=== PATIENT | female | born 1935 | race Caucasian/White ===

== ENCOUNTER 2017-12-08 13:38 | Inpatient (IN) | payer OTHER ==
--- NOTE | 2017-12-08 13:55 | EDPHY ---
H & P Stated Complaint: dizziness Time Seen by Provider: 12/08/17 13:54 - Personal History Tetanus Vaccine Date: last 10 years - Medical/Surgical History Hx Asthma: No Hx Chronic Respiratory Disease: No Hx Diabetes: No Hx Cardiac Disease: No Hx Renal Disease: No Hx Cirrhosis: No Hx Alcoholism: No Hx HIV/AIDS: No Hx Splenectomy or Spleen Trauma: No Other PMH: healthy only sees pcp yearly. asthma well controlled - Social History Smoking Status: Former smoker Constitutional: Initial Vital Signs Temperature (C) 36.4 C 12/08/17 13:40 Heart Rate 63 12/08/17 13:40 Respiratory Rate 18 12/08/17 13:40 Blood Pressure 148/72 H 12/08/17 13:40 O2 Sat (%) 93 12/08/17 13:40 O2 Delivery Mode Room Air Allergies/Adverse Reactions: sulfamethoxazole [From Bactrim] Allergy (Unknown, Verified 02/24/11 18:19) trimethoprim [From Bactrim] Allergy (Unknown, Verified 02/24/11 18:19) Home Medications: Medication Instructions Recorded Albuterol 02/24/11 MULTIVITAMINS W-IRON 02/24/11 Proair 02/24/11 Medical Decision Making ED Course/Re-evaluation: CHIEF COMPLAINT: Lightheadedness, syncope & fall with amnesia HISTORY OF PRESENT ILLNESS: The patient is an 82 y/o female with a history of asthma arriving via EMS with her daughter complaining of lightheadedness onset this morning. She went for a walk this morning and felt normal. While standing and talking with someone she felt dizzy and then doesn't remember what happened. Per daughter, bystanders reported she fell and loss consciousness. The bystanders helped her home and her family member called 911. Her daughter says, "she doesn't remember to eat and doesn't drink enough water." Daughter has also requested to speak with a social service agency director. REVIEW OF SYSTEMS: A comprehensive 10 system review of systems is otherwise negative aside from elements mentioned in the history of present illness and medical decision making. PHYSICAL EXAM: HR, BP, O2 Sat, RR. Temp noted General Appearance: Alert, well hydrated, appropriate, and non-toxic appearing. Head: Atraumatic without scalp tenderness or obvious injury Eyes: Pupils equal, round, reactive to light and accommodation, EOMI, no trauma , no injection. Nose: Atraumatic, no rhinorrhea, clear. Throat: Mucus membranes moist. Neck: Supple, nontender, no lymphadenopathy. Respiratory: No retractions, no distress, no wheezes, and no accessory muscle use. Lungs are clear to auscultation bilaterally. Cardiovascular: Regular rate and rhythm, no murmurs, rubs, or gallops. Good capillary refill all extremities. Gastrointestinal: Abdomen is soft, nontender, non-distended, no masses, no rebound, no guarding, no peritoneal signs. Musculoskeletal: Normal active ROM of all extremities, atraumatic. Neurological: Alert, appropriate, and interactive. The patient has non-focal cranial nerves, motor, sensory, and cerebellar exam. Skin: No rashes, good turgor, no nodules on palpation. Past medical history: Asthma - well controlled per pt Past surgical history: Noncontributory Family history: Noncontributory Social history: Daughter at bedside. Lives in [place]. Retired. DIAGNOSTICS/PROCEDURES/CRITICAL CARE TIME: The 12 lead EKG was interpreted by myself. Sinus mechanism rate 68. See hard copy and/or "tracemaster" electronic copy for interpretation. DIFFERENTIAL DIAGNOSIS: The differential diagnosis for the patient's syncope included but was not limited to vasovagal syncope, arrhythmia, dehydration, cardiogenic causes, neurogenic causes, and blood loss. MEDICAL DECISION MAKING: This is an 82 y/o female who presents after a syncopal episode with loss of consciousness this morning. She does not remember the event, but does report feeling dizzy before and afterwards. Exam is unremarkable. Plan for IV, labs, EKG. 500mL IV NS ordered. Spoke with hospitalist service. Dr. Marroquin accepts admission. - Data Points Laboratory Results: Laboratory Results 12/08/17 13:38 12/08/17 13:38 12/08/17 12/08/17 13:38 13:38 WBC 9.69 10^3/uL H 10^3/uL (3.80-9.50) RBC 5.01 10^6/uL 10^6/uL (4.18-5.33) Hgb 14.3 g/dL g/dL (12.6-16.3) Hct 43.7 % % (38.0-47.0) MCV 87.2 fL fL (81.5-99.8) MCH 28.5 pg pg (27.9-34.1) MCHC 32.7 g/dL g/dL (32.4-36.7) RDW 13.5 % % (11.5-15.2) Plt Count 395 10^3/uL 10^3/uL (150-400) MPV 8.8 fL fL (8.7-11.7) Neut % (Auto) 71.7 % % (39.3-74.2) Lymph % (Auto) 19.3 % % (15.0-45.0) [place] % (Auto) 7.4 % % (4.5-13.0) Eos % (Auto) 1.0 % % (0.6-7.6) Baso % (Auto) 0.4 % % (0.3-1.7) Nucleat RBC Rel Count 0.0 % % (0.0-0.2) Absolute Neuts (auto) 6.94 10^3/uL H 10^3/uL (1.70-6.50) Absolute Lymphs (auto) 1.87 10^3/uL 10^3/uL (1.00-3.00) Absolute Monos (auto) 0.72 10^3/uL 10^3/uL (0.30-0.80) Absolute Eos (auto) 0.10 10^3/uL 10^3/uL (0.03-0.40) Absolute Basos (auto) 0.04 10^3/uL 10^3/uL (0.02-0.10) Absolute Nucleated RBC 0.00 10^3/uL 10^3/uL (0-0.01) Immature Gran % 0.2 % % (0.0-1.1) Immature Gran # 0.02 10^3/uL 10^3/uL (0.00-0.10) Sodium 136 mEq/L mEq/L (135-145) Potassium 4.0 mEq/L mEq/L (3.3-5.0) Chloride 96 mEq/L L mEq/L (97-110) Carbon Dioxide 25 mEq/l mEq/l (22-31) Anion Gap 15 mEq/L mEq/L (8-16) BUN 21 mg/dL mg/dL (7-23) Creatinine 1.0 mg/dL mg/dL (0.6-1.0) Estimated GFR 53 Glucose 97 mg/dL mg/dL (70-100) Calcium 10.0 mg/dL mg/dL (8.5-10.4) Magnesium 2.1 mg/dL mg/dL (1.6-2.3) Total Bilirubin 0.9 mg/dL mg/dL (0.1-1.4) Conjugated Bilirubin 0.2 mg/dL mg/dL (0.0-0.5) Unconjugated Bilirubin 0.7 mg/dL mg/dL (0.0-1.1) AST 27 IU/L IU/L (14-46) ALT 34 IU/L IU/L (9-52) Alkaline Phosphatase 110 IU/L IU/L (38-126) NT-Pro-B Natriuret Pep 344 pg/mL pg/mL (0-450) Total Protein 8.2 g/dL g/dL (6.3-8.2) Albumin 4.6 g/dL g/dL (3.5-5.0) Lipase 122 IU/L IU/L (23-300) Departure - Departure Disposition: [facility] Inpatient Acute Clinical Impression: Syncope Qualifiers: Syncope type: unspecified Qualified Code(s): R55 - Syncope and collapse Condition: Fair Referrals: NONE *PRIMARY CARE P,. [Primary Care Provider] - As per Instructions Report Scribed for: Francisco Leggett Report Scribed by: Lida Cunningham Date of Report: 12/08/17 Time of Report: 14:20
[2017-12-08] MEDS ORDERED: NS 500 ML IV ONE (14:01)
[2017-12-08 14:09] LABS: PLATELET COUNT 395 10^3/uL (150-400)
[2017-12-08] MEDS ORDERED: ONDANSETRON 4 MG/2 ML VIAL IVP PRN (14:44)
[2017-12-08] MEDS ORDERED: ACETAMINOPHEN 325 MG TAB PO PRN (14:44)
[2017-12-08] MEDS ORDERED: ZOLPIDEM TARTRATE 5 MG TAB PO PRN (14:44)
--- NOTE | 2017-12-08 14:51 | CPEKG ---
Test Reason : OPEN Blood Pressure : / mmHG Vent. Rate : 068 BPM Atrial Rate : 071 BPM P-R Int : 038 ms QRS Dur : 091 ms QT Int : 427 ms P-R-T Axes : 097 047 054 degrees QTc Int : 455 ms Sinus rhythm Short MA interval Probable left atrial enlargement Confirmed by Francisco Leggett ([id number]) on 12/08/2017 2:50:44 PM Referred By: Confirmed By:Francisco Leggett
--- NOTE | 2017-12-08 14:54 | PDGENHP ---
History and Physical History and Physical: CC: Brought into ER after a syncopal spell today HISTORY: The patient and daughter both provide part of the history, the patient does not remember some of the details of earlier today. The patient's daughter is here with me at the bedside. The patient is a [facility] patient with Dr. Filemon Holguin, and we do not have any significant previous records for here besides 1 ER visit for asthma. This patient who lives independently and is active, when out for her usual morning walk and apparently on the way back had an unwitnessed syncopal spell. This occurred in the parking lot behind the building where she lives in a condo. Apparently 1 of the employees of the [employer] helped her get up from the ground and brought her in to the building and back to her apartment where she called her daughter. The patient herself does not remember this episode in any detail. She can tell me that she thinks that occurred on the way home as opposed to on the way out. She normally walks a mile a day. At this time she says she feels fine but thinks she may have had some mild dizziness after the event. She recalls not feeling ill or having any problems prior to the event. She did eat her normal breakfast. Denies nausea palpitations vertigo chest pain shortness of breath fever symptoms cough neurologic symptoms. She does not think she injured herself and did not notice any pain since this episode. She was able to walk after this episode. She currently denies headache neck pain back pain chest abdomen joint pain or abdominal pain. The patient's daughter mentions that the patient has been having worsening memory issues and that her family has worried about her staying in independent living in thinking that she needs some more assistance than she is getting but wondering what that should look like. They have talked to the patient about some type of live-in aide but the patient has declined to accept that. The patient recalls no other recent illness or symptoms of illness. There is no prior history of syncope or falls. The generally is not a balance issue and she does not use a walking aid. She has no history of heart or lung disease ROS: A comprehensive 10 system review revealed no other significant findings PAST MEDICAL HISTORY: Dementia Hypertension Asthma FAMILY MEDICAL HISTORY: No significant illness per the patient's daughter SOCIAL HISTORY: Lives singly in a [place] here. Walks daily Has a garden that she tends Quit smoking a long time ago, no current alcohol use but apparently had some more significant use in the past MEDICATIONS: The patients list has been reconciled by our clinical pharmacist in the EMR. I have reviewed the list and ordered appropriate medicines. PHYSICAL EXAMINATION: Vital Signs: All normal without fever Ceiling Cleaner: Sinus Examination: General: alert, oriented, good mentation, relaxed Skin: warm, dry, good color, no rash HEENT: normal Neck: no mass or jvd Resps: relaxed Lungs: clear breath sounds Heart: regular, no murmur Abdomen: soft, nondistended, nontender, +BS, no mass Upper Extremities: normal Lower Extremities: no edema, warm No Bleeding or bruising Neurologic: normal speech/language, normal speech and language tutor, no focal weakness IV site: looks normal LABORATORY DATA: Minimal elevation of white blood cell count with minimal elevation of neutrophils, otherwise unremarkable CBC Normal chemistry panels and troponin D-dimer is elevated at 0.88 RADIOLOGY STUDIES: None done so far 12 LEAD EKG: I reviewed 12 lead EKG tracing from the ER which is a normal EKG ASSESSMENT: * acute sudden syncope today during ambulation * history of asthma currently stable Her initial assessment is unrevealing. However given her age and the fact that this occurred during ambulation and she is a former smoker raises question of possible cardiac cause. Her daughter has concerns about the patient's ability to safely live independently. It seems like she has been doing quite well so far but she clearly does have some memory issues. PLANS: * Observe overnight on cardiac monitoring * Echocardiogram * As her D-dimer is elevated will CT scan to rule out PE as a cause of syncope, though I doubt this given her overall presentation so far * Further assessments after all of the above I have reviewed the patient's case in detail with Dr. Francisco Leggett
[2017-12-08] MEDS: NS 1,000 ML IV SCH (17:00)
[2017-12-08] MEDS ORDERED: IOPAMIDOL (ISOVUE 370) 100 ML BTL IV ONE (18:01)
[2017-12-08] MEDS ORDERED: ALBUTEROL 60 PUFFS/8 GM MDI IH PRN (18:04)
[2017-12-08] MEDS: MELATONIN 3 MG TAB PO SCH (20:13)
[2017-12-08] MEDS: BECLOMETHASONE QVAR 80 REDIHALER 120 INH/10.6 GM MDI IH SCH (21:42)
[2017-12-09] MEDS: BECLOMETHASONE QVAR 80 REDIHALER 120 INH/10.6 GM MDI IH SCH ×2 (08:47→20:48)
[2017-12-09] MEDS ORDERED: POTASSIUM CL 20 MEQ TAB PO ONE (09:14)
[2017-12-09] MEDS: amLODIPine BESYLATE 5 MG TAB PO SCH (10:12)
[2017-12-09] MEDS: ATORVASTATIN CALCIUM 40 MG TAB PO SCH (10:12)
--- NOTE | 2017-12-09 10:54 | ASMTCMCOM ---
CM Note CM Note Notes: Pt's chart reviewed for d/c planning. Pt is an 82 y/o female who arrived EMS to the ED with her daughter c/o lightheadeness onset yesterday morning. She went for a walk and felt normal. While standing and talking with someone she felt dizzy, fell and lost consciousness. Her daughter has expressed concern over her mother's increased difficulty with memory and is concerned that she is living independently in a condominium. Family has suggested a live-in aide, but the pt has declined this. The family believes she needs a different living situation, but doesn't know what that would look like. PT/OT evals have been ordered. CM to follow. D/C Plan: TBD Date Signed: 12/09/2017 10:54 AM Electronically Signed By:Mabel Ramey
--- NOTE | 2017-12-09 13:59 | ECHO ---
[email or web address] [address] [address] Main: [phone] Fax: Transthoracic Echocardiogram Name: JOSEFINA DANGELO MR#: [id number] Study Date: 12/09/2017 Study Time: 12:39 PM Date of : 1935 Age: 82 year(s) Height: 170.2 cm (67 in.) Weight: 67.59 kg (149 lb.) BSA: 1.78 m2 Gender: Female Examination: Echo Indication: Cardiac: syncope Image Quality: Adequate Contrast: Requested by: Ken Santiago BP: 133 mmHg/68 mmHg Heart Rate: Rhythm: Indication: Cardiac: syncope Procedure Staff Maternal Child Nurse: Hermelinda Lowry RDCS Reading Physician: Pako Montenegro MD Requesting Provider: Conclusions: Normal size left ventricle. Normal global systolic LV function. EF is 64 %. No regional wall motion abnormality. Grade 2 diastolic dysfunction (pseudonormalized LV filling pattern). Mild mitral valve regurgitation is present. Moderate tricuspid regurgitation is present. The pulmonary artery pressure is mild to moderately increased. Right ventricular systolic pressure measures 49mmHg. Trivial pulmonic valve regurgitation. Measurements: Chambers Valvular Assessment AV/MV Valvular Assessment TV/PV Normal Normal Normal Name Value Range Name Value Range Name Value Range Ao Susu (2D): 2.5 cm (1.4 cm-2.6 AV Vmax: 1.83 m/s (1 m/s-1.7 TR Vmax: 3.31 mm/s ( - ) cm) m/s) TR PGmax: 44 mmHg ( - ) IVSd (2D): 0.8 cm (0.6 cm-1.1 AV maxP mmHg ( - ) syst. PAP: 49 mmHg ( - ) cm) AV meanP mmHg ( - ) PV Vmax: 1.02 m/s (0.6 m/s-0.9 LVDd (2D): 4.7 cm (3.9 cm-5.3 SHANAE (VTI): 2.3 cm ( - ) m/s) cm) MV E Vmax: 0.95 m/s ( - ) PV PGmax: 4 mmHg ( - ) LVDs (2D): 3.0 cm (2.1 cm-4 MV A Vmax: 0.84 m/s ( - ) cm) MV E/A: 1.13 ( - ) LVPWd (2D): 1.0 cm ( - ) MV PHT: 0.085 s ( - ) LVOTd 1.9 cm 1.9 cm mm MVA (PHT): 2.6 s ( - ) LVEF (BP): 64 % (>=55 %) RVDd(2D): 3.3 cm (1.9 cm-3.8 cmmm) Continued Measurements: Patient: JOSEFINA DANGELO Study Date: 12/09/2017 Page 1 of 2 12:39 PM Chambers Valvular Assessment AV/MV Valvular Assessment TV/PV Name Value Name Value Name Value LADs: 4.1 cm MV DecTime: 271 m/s CVP (est.): 5 mmHg LADs Lon.3 cm MV E' Septal: 0.06 m/s LA Area: 18.2 cm2 MV E/E' Septal: 15.40 LA Volume: 75 ml MV E/E' Lateral: 15.00 LA Volume Index: 42.1 ml/m2 RA Area: 19.3 cm2 Additional Vessels Name Value Ao Ascendin.9 cm Findings: Left Ventricle: Normal size left ventricle. No LV hypertrophy. Normal global systolic LV function. EF is 64 %. No regional wall motion abnormality. Grade 2 diastolic dysfunction (pseudonormalized LV filling pattern). Right Ventricle: Normal size right ventricle. Normal RV function. Left Atrium: The left atrium is normal in size. Right Atrium: The right atrium is mildly to moderately dilated. Mitral Valve: The mitral valve is normal in appearance and function. Mild mitral valve regurgitation is present. No mitral stenosis is present. Aortic Valve: The aortic valve is tri-leaflet. There is no significant aortic valve regurgitation. No aortic valve stenosis is present. Tricuspid Valve: The tricuspid valve is normal in appearance and function. Moderate tricuspid regurgitation is present. The pulmonary artery pressure is mild to moderately increased. Right ventricular systolic pressure measures 49mmHg. Pulmonic Valve: The pulmonic valve is normal in appearance and function. Trivial pulmonic valve regurgitation. Aorta: The aorta is normal. Normal size aortic root measuring 2.5 cm. Normal size ascending aorta measuring 2.9 cm. IVC: The IVC is normal sized. Pericardium: No pericardial effusion. No pleural effusion. (No Signature Object) Patient: JOSEFINA DANGELO Study Date: 12/09/2017 Page 2 of 2 12:39 PM [id number]
--- NOTE | 2017-12-09 16:19 | ASMTCMCOM ---
CM Note CM Note Notes: Met with pt and dtr Mary, plan is for pt to go to SNF as a bridge to [place]. Pt dissapointed she can't return to home where she has been for many years but cog eval reveals significant decline, 02/02 on SLUMS. CM sent referral to [place] for auth for on SNF, they responded stating that they don't think she is appropriate for SNF but would like to speak to MD. CM notified doctor Updike. PETERS Plan: SNF Date Signed: 12/09/2017 04:18 PM Electronically Signed By:Shawanda Davenport RN
[2017-12-09] MEDS: NS 1,000 ML IV SCH (18:00)
[2017-12-09] MEDS: MELATONIN 3 MG TAB PO SCH (20:19)
--- NOTE | 2017-12-09 23:02 | HOSPPROG ---
Hospitalist Progress Note Assessment/Plan: Assessment: 82 yo F p/w acute syncope in setting of suspected, undiagnosed dementia Plan: # Syncope. Acute, new problem, further w/u indicated. Unwitnessed, patient reports prodromal dizziness, suspect 2/2 hypovolemia as patient endorses low PO intake and hypokalemic on presentation -chest CUS and Echo to r/o structural cause -tele w/ NSR (personally interpreted) -check orthostatic VS s/p IVF # Suspected chronic encephalopathy. Patient likely w/ undiagnosed dementia and a MMSE 02/02 -engaged daughter/patient in goals of care convo -order outside records from Dr. Angel's office to determine whether patient's mental status recently evaluated # Atelectasis. Acute, present on CTA, start IS # HTN. Chronic, cont home Rx Diet. Regular PPx. High risk, lovenox 40 Code. Full Dispo. ADD uncertain, upgrade to inpatient admission status for reasonable medical necessity and anticipated > 48hrs of care, as patient is currently unsafe to DC home independently from a cognitive standpoint and patient's coverage is not authorizing any appropriate alternative level of care, so she will receive ongoing therapy reassessments tomorrow, reassessment of her mental status. Subjective: denies any traumatic pain Objective: Vital Signs Temp Pulse Resp BP Pulse Ox 36.7 C 68 16 131/74 H 94 12/09/17 19:56 12/09/17 20:49 12/09/17 20:49 12/09/17 19:56 12/09/17 20:49 Laboratory Results 12/09/17 03:40 12/09/17 03:40 12/08/17 12/09/17 12/10/17 05:59 05:59 05:59 Intake Total 1939 1580 Output Total 900 Balance 1039 1580 - Physical Exam Constitutional: no apparent distress, appears nourished, not in pain, No uncomfortable Cardiovascular: edema, No systolic murmur, No irregularly irregular, No carotid bruit, No tachycardia Respiratory: inspiratory crackles (L base), No reduced air movement, No expiratory wheeze, No bronchial breath sounds, No respiratory distress Gastrointestinal: normoactive bowel sounds, soft, non-tender abdomen, No distension Neurologic: AAOx3, sensation intact bilaterally, CN II-XII Intact, No weakness Psychiatric: interacting appropriately, not anxious, encephalopathic (naming 3/3 ), flat affect, poor insight, poor memory, No agitated ICD10 Worksheet Patient Problems: Problems Problem Status Onset Syncope Acute
--- NOTE | 2017-12-10 08:03 | PDMN ---
Medical Necessity Medical necessity: MCG: M340 Syncope A-1 day: INPT for acute syncope in setting of poss. undg. dementia, suspect chronic encephalopathy, - unwitnessed , pt reports prodromal dizziness, atelectasis present on CTA, changed to INPT for ongoing med nec. > 2 MN., pt unsafe to DC independently ongoing OT/ Cog. therapy assessments needed.
[2017-12-10] MEDS: BECLOMETHASONE QVAR 80 REDIHALER 120 INH/10.6 GM MDI IH SCH ×2 (09:30→20:14)
[2017-12-10] MEDS: amLODIPine BESYLATE 5 MG TAB PO SCH (11:09)
[2017-12-10] MEDS: ATORVASTATIN CALCIUM 40 MG TAB PO SCH (11:09)
[2017-12-10] MEDS ORDERED: ALBUTEROL 60 PUFFS/8 GM MDI IH PRN ×2 (11:45)
--- NOTE | 2017-12-10 14:16 | ASMTCMCOM ---
CM Note CM Note Notes: Patient plan of care reviewed in rounds. Per hospitalist, patient isn't cognitively safe to dc to her home. Call to [facility] and they had docked a phone call from case management but no details as to whom our Dr should speak with. I left a message for their CM Sylvia at [phone]. I ask that she call the extension for PCU CM tomorrow. Plan: TBD Date Signed: 12/10/2017 02:16 PM Electronically Signed By:Herminia Carias RN
--- NOTE | 2017-12-10 18:47 | HOSPPROG ---
Hospitalist Progress Note Assessment/Plan: Assessment: 82 yo F p/w acute syncope in setting of suspected, undiagnosed dementia Plan: # Syncope. Acute, unwitnessed, patient reports prodromal dizziness, suspect 2/2 hypovolemia as patient endorses low PO intake and hypokalemic on presentation -Echo normal, orthostatics negative -cont tele # Suspected chronic encephalopathy. Patient likely w/ undiagnosed dementia and a MMSE 02/02 -order outside records from Dr. Angel's office to determine whether patient's mental status recently evaluated -agree w/ her daughter that patient is unsafe to DC home independently, and she is actively working on securing [facility] -securing SNF will take some time, and patient would likely benefit from OT/Cog therapy at SNF in the interim -discussed on team rounds this AM, case mgmt has reached out to [facility] but [facility] has not communicated back with us regarding either repatriation for these services or authorizing SNF/rehab, and ongoing attempts will be made on 12/11 # Atelectasis. Acute, present on CTA, started IS # HTN. Chronic, cont home Rx # Carotid stenosis. 40% bilat on CUS w/o flow-limitations -recommended that patient start ASA 81 -check lipid panel Diet. Regular PPx. High risk, lovenox 40 Code. Full Dispo. ADD uncertain, unsafe to DC independently and awaiting follow-up from [facility] regarding repatriation vs. SNF/rehab authorization, which are the only two safe locations of care. Subjective: patient w/o complaints, no repeat episodes of syncope Objective: Vital Signs Temp Pulse Resp BP Pulse Ox 37 C 83 17 143/72 H 96 12/10/17 15:20 12/10/17 15:20 12/10/17 15:20 12/10/17 15:20 12/10/17 15:20 Laboratory Results 12/10/17 03:58 12/09/17 12/10/17 12/11/17 05:59 05:59 05:59 Intake Total 300 450 Output Total 600 950 Balance -300 -500 - Physical Exam Constitutional: no apparent distress, appears nourished, not in pain Cardiovascular: regular rate and rhythym, no murmur, rub, or gallop, No edema Respiratory: no respiratory distress, no rales or rhonchi, clear to auscultation Gastrointestinal: normoactive bowel sounds, soft, non-tender abdomen, no palpable masses Neurologic: AAOx3 Psychiatric: not anxious, flat affect, poor insight, poor memory, No agitated ICD10 Worksheet Patient Problems: Problems Problem Status Onset Syncope Acute
[2017-12-10] MEDS: MELATONIN 3 MG TAB PO SCH (19:52)
[2017-12-11] MEDS: BECLOMETHASONE QVAR 80 REDIHALER 120 INH/10.6 GM MDI IH SCH ×2 (09:13→21:21)
[2017-12-11] MEDS: ATORVASTATIN CALCIUM 40 MG TAB PO SCH (09:44)
[2017-12-11] MEDS: ASPIRIN EC 81 MG TAB PO SCH (09:44)
[2017-12-11] MEDS: amLODIPine BESYLATE 5 MG TAB PO SCH (09:44)
--- NOTE | 2017-12-11 15:18 | HOSPPROG ---
Hospitalist Progress Note Assessment/Plan: Assessment: 82 yo F p/w acute syncope in setting of suspected, undiagnosed dementia Plan: # Syncope. Suspect 2/2 hypovolemia, Echo normal, orthostatics negative, no events on tele. # Dementia. Previously undiagnosed, but progressive per daughter. SLUMS 02/02 -daughter working on [facility] placement, but would benefit from SNF in the meantime per speech and OT recs -awaiting approval from [place] for SNF # HTN. Fair control -cont current meds # Carotid stenosis. 40% bilat on CUS w/o flow-limitations -cont ASA 81 -LDL 46, no indication for statin Diet. Regular PPx. High risk, lovenox 40 Code. Full Dispo. ADD uncertain, unsafe to DC independently and awaiting follow-up from [facility] regarding repatriation vs. SNF/rehab authorization, which are the only two safe locations of care. Subjective: Pt doing ok. She wants to go home. Frustrated that she slipped on the step and that led to her being placed. Acknowledges that her daughter has her safety in mind. No dizziness, CP, SOB, syncopal or presyncopal events. Objective: Vital Signs Temp Pulse Resp BP Pulse Ox 36.5 C 59 L 20 148/74 H 93 12/11/17 12:26 12/11/17 12:26 12/11/17 12:26 12/11/17 12:26 12/11/17 12:26 Laboratory Results 12/10/17 03:58 12/10/17 12/11/17 12/12/17 05:59 05:59 05:59 Intake Total 300 850 Output Total 600 1400 1000 Balance -300 -550 -1000 - Physical Exam Constitutional: no apparent distress Eyes: PERRL Ears, Nose, Mouth, Throat: moist mucous membranes Cardiovascular: regular rate and rhythym Respiratory: no respiratory distress Gastrointestinal: normoactive bowel sounds, soft, non-tender abdomen Skin: warm Musculoskeletal: full muscle strength Neurologic: AAOx3 Psychiatric: interacting appropriately, poor insight, poor memory ICD10 Worksheet Patient Problems: Problems Problem Status Onset Syncope Acute
--- NOTE | 2017-12-11 16:33 | ASMTCMCOM ---
CM Note CM Note Notes: Spoke with hospitalist, pt and therapies regarding pt's disposition. Pt preferring to discharge home to take care of her cat, but therapies and daughter are concerned with pt's level of short term memory loss and the fact that pt seems unaware of the degree of her memory failure. [place] petitioned with referral to SNF with therapy notes recommending this, had doc to doc conversation with [place] doctor and [place] still denied placement in SNF, arranging instead for home with home care including AUTOMOTIVE HEAVY MECHANIC and OIL HEATER INSTALLER to assist with LTC/AL placement. Referral will be sent to [facility]. [place] to fax to [facility] the denial letter with instructions on how to appeal. attempted to inform dtr Mary, but connection was poor and call was dropped. Left voicemail instead. D/C Plan: Home with [facility] HC, RN, PT/OT, AUTOMOTIVE HEAVY MECHANIC and OIL HEATER INSTALLER Date Signed: 12/11/2017 04:32 PM Electronically Signed By:Migdalia Ogden
[2017-12-11] MEDS: MELATONIN 3 MG TAB PO SCH (20:52)
[2017-12-12] MEDS: ASPIRIN EC 81 MG TAB PO SCH (07:53)
[2017-12-12] MEDS: amLODIPine BESYLATE 5 MG TAB PO SCH (07:53)
[2017-12-12] MEDS: ATORVASTATIN CALCIUM 40 MG TAB PO SCH (07:53)
--- NOTE | 2017-12-12 09:23 | HOSPPROG ---
Hospitalist Progress Note Assessment/Plan: Assessment: 82 yo F p/w acute syncope in setting of newly diagnosed dementia Plan: # Syncope. Suspect 2/2 hypovolemia, Echo normal, orthostatics negative, no events on tele. # Dementia. Previously undiagnosed, but progressive per daughter. SLUMS . I think she warrants a brain MRI to evaluate for prior CVA especially with presenting syncope -MRI today -[facility] will not approve SNF, daughter working on caregiver options at home versus memory care # HTN. Fair control -cont current meds # Carotid stenosis. 40% bilat on CUS w/o flow-limitations -cont ASA 81 -LDL 46, no indication for statin Diet. Regular PPx. High risk, lovenox 40 Code. Full Dispo. ADD uncertain, working on home caregivers versus memory care, CM involved Subjective: Pt feels well, wants to go home. Acknowledges her memory issues. Denies rivera, vision changes, CP or SOB. Objective: Vital Signs Temp Pulse Resp BP Pulse Ox 36.4 C 63 16 132/78 H 94 12/12/17 06:00 12/12/17 06:00 12/12/17 06:00 12/12/17 07:53 12/12/17 06:00 Laboratory Results 12/10/17 03:58 12/11/17 12/12/17 12/13/17 05:59 05:59 05:59 Intake Total 850 2650 Output Total 1400 1700 Balance -550 950 - Physical Exam Constitutional: no apparent distress Eyes: PERRL Ears, Nose, Mouth, Throat: moist mucous membranes Cardiovascular: regular rate and rhythym Respiratory: no respiratory distress, clear to auscultation Gastrointestinal: normoactive bowel sounds, soft, non-tender abdomen Skin: warm Musculoskeletal: full muscle strength Neurologic: AAOx3 Psychiatric: interacting appropriately ICD10 Worksheet Patient Problems: Problems Problem Status Onset Syncope Acute
[2017-12-12] MEDS: BECLOMETHASONE QVAR 80 REDIHALER 120 INH/10.6 GM MDI IH SCH ×2 (09:37→20:11)
--- NOTE | 2017-12-12 16:55 | ASMTCMCOM ---
CM Note CM Note Notes: Spoke with pt's dtr and [employer] Renate who is overwhelmed and very concerned that pt is not safe to be home alone. Renate has had a stroke recently and her is also ill, and brothers are not able to provide support from a distance. Pt declined by [facility] for SNF placement, [place] letter of decline in chart with instructions on how to appeal if dtr is interested. Pt hesitant for LTC at this time, but family is insisting and states pt has voiced agreement and understanding of necessity in the past, depending on her cognitive state. Entire family is in agreement that this is the safer choice for pt. [employer] notified to do LTC Medicaid Screening and dtr is agreeable. Dtr has also engaged private forensic social worker to advise on LTC placement. Pt is already on food stamps. ULTC-100 faxed. And referral sent to [facility]. Please communicate this to dtr amd inquire if dtr is interested in other facilities. [facility] has accepted and will provide CEO & FOUNDER and AIRPLANE CHARTER CLERK support for LTC planning if pt discharges before LTC is found or if pt refuses LTC and daughter is unable to get her agreement. Dtr would like from tomorrow: List of private duty agencies (for temporary support) and name of day program - [facility] Day [facility] [email or web address]. CM to follow. D/C Plan: Medicaid LTC if pt qualifies and is agreeable v [facility] with Medicaid HBCS Date Signed: 12/12/2017 04:54 PM Electronically Signed By:Migdalia Ogden
[2017-12-12] MEDS: MELATONIN 3 MG TAB PO SCH (21:25)
[2017-12-13 08:08] VITALS: BP 145/70
[2017-12-13] MEDS: ASPIRIN EC 81 MG TAB PO SCH (09:27)
[2017-12-13] MEDS: amLODIPine BESYLATE 5 MG TAB PO SCH (09:29)
[2017-12-13] MEDS: ATORVASTATIN CALCIUM 40 MG TAB PO SCH (09:29)
[2017-12-13] MEDS: BECLOMETHASONE QVAR 80 REDIHALER 120 INH/10.6 GM MDI IH SCH (09:50)
--- NOTE | 2017-12-13 16:07 | ASMTLACE ---
LACE Length of stay for Answers: 3 days current admission Acuity / Level of Answers: Yes Care: Did the patient have an inpatient admission? Comorbidities - select Answers: Dementia all that apply # of Emergency department Answers: 1-2 visits in the last 6 months Score: 10 Date Signed: 12/13/2017 04:07 PM Electronically Signed By:Amara Young RN
--- NOTE | 2017-12-13 16:25 | ASMTDCNOTE ---
Case Management Discharge Discharge Order Complete? Answers: Yes Patient to Obtain Answers: Other Notes: [facility] Medications [place] Transportation Arranged Answers: Family/Friends Faxed Final Orders Answers: Yes Notes: to [facility] Agency/Facility Transfer Answers: Yes Notes: to [facility] Report Printed & Faxed to Receiving Agency Family Notified Answers: Yes Discharge Comments Notes: 12/13/2017 Case Management Note Phone call early this morning from Ken Fl[place]olis from [facility]. [phone] and [phone] (cell). Pt daughter Renate contacted [place] re: moving pt from home to assisted living. Tony RN evaluated pt and accepted to facility. Faxed requested paperwork from [facility] that completed. Faxed final orders through [employer]. Left VM on both Ken's cell phone and office phone. Discussed pt during rounds this morning. Met w/pt and daughter Renate and famly friend Anju to discuss d/c plan. Renate expressed frustration with [facility], stating that [facility] told her that pt had to d/c today from hospital. Called [facility] at [phone]. [facility] SW to meet with pt at [facility]. Provided info on the [facility] program. Left vm for [facility] liason to conatct daughter Renate for assessment. Provided info for [facility] memory program. Phone call from Eliot ALBERT, he will disregard ULTC 100 application as pt is private paying for placement at [place] and will not qualify for Medicaid. Renate to transport pt to [facility]. No further case management needs identified. Date Signed: 12/13/2017 04:25 PM Electronically Signed By:Amara Young RN
--- NOTE | 2017-12-13 16:30 | ASDISCHSUM ---
Discharge Information Plan Status:Assisted Living Medically Cleared to Leave:12/13/2017 Discharge Date:12/13/2017 CM D/C Disposition:Home, Routine, Self-Care ADT D/C Disposition:Home, Routine, Self-Care Projected Discharge Date:12/12/2017 11:00 AM Transportation at D/C:Family Discharge Delay Reason: Follow-Up Date:12/12/2017 11:00 AM Discharge Slot: Final Diagnosis: Placement Information Referral Type:*Residential/SNF Referral ID:[id number] Provider Name: Address 1: Phone Number: Address 2: Fax Number: City: Selection Factors: State: Referral Type:*Home Health Care Services Referral ID:[id number] Provider Name: Address 1: Phone Number: Address 2: Fax Number: City: Selection Factors: State: Referral Type:Assisted Living Residence Referral ID:[id number] Provider Name:[facility] [place] Address 1:[address] Address 2: City:[place] Selection Factors: State:[place] Patient Contact Information Contact Name:KEVYN Relationship:Daughter Address: Work Phone: City:[place] Alternate Phone: [facility]/Zip Code:[place] [address] Email: Financial Information Financial Class:Medicare Advantage Plans Primary Plan Desc:[employer] MEDICARE ADV IP Primary Plan Number:[id number] Secondary Plan Desc: Secondary Plan Number: Assessment Information LACE LACE Length of stay for Answers: 3 days current admission Acuity / Level of Answers: Yes Care: Did the patient have an inpatient admission? Comorbidities - select Answers: Dementia all that apply # of Emergency department Answers: 1-2 visits in the last 6 months Score: 10 Date Signed: 12/13/2017 04:07 PM Electronically Signed By:Amara Young RN [facility] Progress Note CM Note CM Note Notes: Pt's chart reviewed for d/c planning. Pt is an 82 y/o female who arrived EMS to the ED with her daughter c/o lightheadeness onset yesterday morning. She went for a walk and felt normal. While standing and talking with someone she felt dizzy, fell and lost consciousness. Her daughter has expressed concern over her mother's increased difficulty with memory and is concerned that she is living independently in a condominium. Family has suggested a live-in aide, but the pt has declined this. The family believes she needs a different living situation, but doesn't know what that would look like. PT/OT evals have been ordered. CM to follow. D/C Plan: TBD Date Signed: 12/09/2017 10:54 AM Electronically Signed By:Mabel Ramey [facility] Progress Note CM Note CM Note Notes: Met with pt and dtr Mary, plan is for pt to go to SNF as a bridge to [place]. Pt dissapointed she can't return to home where she has been for many years but cog eval reveals significant decline, 02/02 on SLUMS. CM sent referral to [place] for [place] for on SNF, they responded stating that they don't think she is appropriate for SNF but would like to speak to . CM notified doctor [place]. [facility] Plan: SNF Date Signed: 12/09/2017 04:18 PM Electronically Signed By:Shawanda Davenport RN [facility] Progress Note CM Note CM Note Notes: Patient plan of care reviewed in rounds. Per hospitalist, patient isn't cognitively safe to dc to her home. Call to [facility] and they had docked a phone call from case management but no details as to whom our Dr should speak with. I left a message for their CM Sylvia at [phone]. I ask that she call the extension for [facility] CM tomorrow. Plan: TBD Date Signed: 12/10/2017 02:16 PM Electronically Signed By:Herminia Carias RN [facility] Progress Note CM Note CM Note Notes: Spoke with hospitalist, pt and therapies regarding pt's disposition. Pt preferring to discharge home to take care of her cat, but therapies and daughter are concerned with pt's level of short term memory loss and the fact that pt seems unaware of the degree of her memory failure. [place] petitioned with referral to SNF with therapy notes recommending this, had doc to doc conversation with [place] doctor and [place] still denied placement in SNF, arranging instead for home with home care including GRAIN COMMODITY MANAGER and HOSPITAL MEDICAL ASSISTANT to assist with LTC/AL placement. Referral will be sent to [facility]. [place] to fax to [facility] the denial letter with instructions on how to appeal. attempted to inform dtr Mary, but connection was poor and call was dropped. Left voicemail instead. D/C Plan: Home with [facility], RN, PT/OT, GRAIN COMMODITY MANAGER and HOSPITAL MEDICAL ASSISTANT Date Signed: 12/11/2017 04:32 PM Electronically Signed By:Migdalia Ogden [facility] Progress Note CM Note CM Note Notes: Spoke with pt's dtr and [employer] Renate who is overwhelmed and very concerned that pt is not safe to be home alone. Renate has had a stroke recently and her is also ill, and brothers are not able to provide support from a distance. Pt declined by [place] for SNF placement, [place] letter of decline in chart with instructions on how to appeal if dtr is interested. Pt hesitant for LTC at this time, but family is insisting and states pt has voiced agreement and understanding of necessity in the past, depending on her cognitive state. Entire family is in agreement that this is the safer choice for pt. [employer] notified to do LTC Medicaid Screening and dtr is agreeable. Dtr has also engaged private social work case manager to advise on LTC placement. Pt is already on food stamps. ULTC-100 faxed. And referral sent to [facility]. Please communicate this to dtr amd inquire if dtr is interested in other facilities. [facility] has accepted and will provide GRAIN COMMODITY MANAGER and HOSPITAL MEDICAL ASSISTANT support for LTC planning if pt discharges before LTC is found or if pt refuses LTC and daughter is unable to get her agreement. Dtr would like from tomorrow: List of private duty agencies (for temporary support) and name of day program - [facility] [email or web address]. CM to follow. D/C Plan: Medicaid LTC if pt qualifies and is agreeable v [facility] with Medicaid HBCS Date Signed: 12/12/2017 04:54 PM Electronically Signed By:Migdalia Ogden Case Management Discharge Plan Note Case Management Discharge Discharge Order Complete? Answers: Yes Patient to Obtain Answers: Other Notes: [facility] Medications [place] Transportation Arranged Answers: Family/Friends Faxed Final Orders Answers: Yes Notes: to [place] Agency/Facility Transfer Answers: Yes Notes: to [facility] Report Printed & Faxed to Receiving Agency Family Notified Answers: Yes Discharge Comments Notes: 12/13/2017 Case Management Note Phone call early this morning from Ken Cox from [facility]. [phone] and [phone] (cell). Pt daughter Renate contacted [facility] re: moving pt from home to assisted living. Ken and [facility] RN evaluated pt and accepted to facility. Faxed requested paperwork from [facility] that MD completed. Faxed final orders through [employer]. Left VM on both Ken's cell phone and office phone. Discussed pt during rounds this morning. Met w/pt and daughter Renate and famly friend Anju to discuss d/c plan. Renate expressed frustration with [place], stating that [place] told her that pt had to d/c today from hospital. Called [facility] [place] [facility] at [phone]. [place] SW to meet with pt at [facility]. Provided info on the [facility] program. Left vm for [facility] liason to conatct daughter Renate for assessment. Provided info for memory program. Phone call from [facility], he will disregard [facility] 100 application as pt is private paying for placement at [place] and will not qualify for Medicaid. Renate to transport pt to [facility]. No further case management needs identified. Date Signed: 12/13/2017 04:25 PM Electronically Signed By:Amara Young RN Intervention Information Intervention Type:*IM-Signed Date of Service:12/13/2017 02:45 PM Patient Type:Inpatient Staff Member:Talia Pressley Hours: Discipline: Severity: Comment:
--- NOTE | 2017-12-14 05:27 | GDS ---
DISCHARGE DIAGNOSES: 1. Syncope, thought secondary to hypovolemia. 2. Dementia, likely vascular in origin. 3. Hypertension. 4. Non flow limiting carotid stenosis. CONSULTANTS: None. PROCEDURES: 1. CT angiogram of the chest was negative for pulmonary embolism. 2. Echocardiogram showed an ejection fraction of 64% with no wall motion abnormality. Grade 2 diastolic dysfunction was present with mild mitral valve regurgitation and moderate tricuspid regurgitation. Pulmonary artery pressure was mildly to moderately increased, with a left ventricular systolic pressure 49. 3. Brain MRI without contrast showed advanced multifocal microvascular ischemic changes throughout both cerebral hemispheres, but no evidence of acute ischemia. Underlying cerebral atrophy is also noted. HISTORY: Please see history and physical dated December 08, 2017. In brief, the patient is an 82-year-old female with a history of hypertension and dementia who presented to the emergency department after a syncopal episode. She was admitted hospital for further management. HOSPITAL COURSE: The patient admitted to the cardiac telemetry unit. She had no abnormalities on her telemetry. Echocardiogram did not reveal a source for syncope. A CT scan was negative for pulmonary embolism. It is thought this may be secondary to volume depletion versus are neurally mediated reflex syncope. She was also noted to have significant cognitive deficits. She was evaluated by speech pathology for cognitive assessment and was found to have a SLUMS score of 11/30. A brain MRI was suggestive of vascular dementia. Disposition became an issue as her daughter was not comfortable with her discharging home. We attempted to get approval for transfer to a prison facility, though the prison facility was not approved by [place] due to the fact that she has no physical needs for rehab. I had a discussion with the [place] physician who recommended she discharge home with increased alf care. Unfortunately, this was difficult for the daughter to achieve due to cost issues. Ultimately, she was discharged to [facility] assisted living facility while her daughter works on long-term options for increased alf care given her dementia. DISCHARGE DISPOSITION: Patient is discharged to assisted living facility in stable condition. Her daughter was provided with resources including [facility] program as well as information regarding [facility] Memory program as well as caregiver resources. FOLLOWUP: She is to follow up with her primary care doctor. DISCHARGE MEDICATIONS: Please see [facility] completed outpatient medication list. Medications on discharge include: Aspirin 81 mg p.o. daily, 3 mg p.o. q.h.s. p.r.n. She will continue amlodipine 5 mg p.o. daily, albuterol 1-2 puffs inhaled q.4 hours p.r.n., Qvar 80 inhaled b.i.d., atorvastatin 40 mg p.o. daily. Triamterene/HCTZ is discontinued in the setting of syncope. /[id number]/MODL MTDD
== END 2017-12-13 17:20 | DRG 641 ==
LOC: EDUNIT# → EDBD → F2W 16:10 → OBSVTOIN 12-09 22:56
PROVIDERS: ADMIT Internal Medicine; ATTEND Internal Medicine
DX: E86.1 Hypovolemia (principal); F01.50 Vascular dementia, unspecified severity, without behavioral disturbance, psychotic disturbance, mood disturbance, and anxiety; E86.9 Volume depletion, unspecified; I10 Essential (primary) hypertension; I65.29 Occlusion and stenosis of unspecified carotid artery; I08.1 Rheumatic disorders of both mitral and tricuspid valves; J45.909 Unspecified asthma, uncomplicated
CPT/HCPCS: 92507-GN; 92523-GN; 97161-GP; 97165-GO; 97168-GO; G0378; G8987-GO-CK; G8988-GO-CK; Q9967